=== PATIENT | male | born 1990 | race Native Hawaiian/Other Pacific Islander ===

== ENCOUNTER 2017-06-02 00:38 | Emergency (ER) | payer OTHER ==
[~2017-06-02] VITALS: Ht 175.3 cm; Wt 90.3 kg
== END 2017-06-02 01:54 | disposition home or self-care (01) ==
LOC: ED 00:38
DX: R10.13 Epigastric pain (principal); B96.81 Helicobacter pylori [H. pylori] as the cause of diseases classified elsewhere
CPT/HCPCS: 36415; 86318; 99283

== ENCOUNTER 2017-06-07 13:27 | Inpatient (IN) | payer OTHER ==
[2017-06-07] VITALS (7 sets, daily range): BP systolic 119–138; BP diastolic 78–90; TEMP 98.5–100; Ht 175.3 cm; Wt 92.2 kg
[~2017-06-07] VITALS: Ht 175.3 cm; Wt 92.2 kg
[2017-06-07 14:44] LABS: PLATELET COUNT 401 K/uL (142-355)
[2017-06-07 14:50] LABS: POTASSIUM 3.9 mmol/L (3.6-5.2); SODIUM 135 mmol/L (136-145)
[2017-06-07 15:31] LABS: PARTIAL THROMBOPLASTIN TIME 24.7 SECONDS (24.5-33.6)
[2017-06-07] MEDS ORDERED: OMEP20CA PO (18:28)
[2017-06-07] MEDS ORDERED: BIAXIN500 MG PO (18:29)
[2017-06-07] MEDS ORDERED: AMOXAPINE100 MG PO (18:29)
[2017-06-07] MEDS ORDERED: CODEINE/APAP1 TA1 PO (18:30)
[2017-06-08] VITALS: BP 125/82; TEMP 98.9
[2017-06-08 04:00] VITALS: BP 103/63; TEMP 98.5
[2017-06-08 05:48] LABS: PLATELET COUNT 376 K/uL (142-355)
[2017-06-08 05:51] LABS: POTASSIUM 3.3 mmol/L (3.6-5.2); SODIUM 133 mmol/L (136-145)
[2017-06-08 08:00] VITALS: BP 111/77; TEMP 98.7
[2017-06-08 12:00] VITALS: BP 110/68; TEMP 98.7
[2017-06-08 16:00] VITALS: BP 112/73; TEMP 99.4
[2017-06-08 20:00] VITALS: BP 114/75; TEMP 99.5
[2017-06-09] VITALS (11 sets, daily range): BP systolic 101–133; BP diastolic 65–86; TEMP 97.5–98.6
[2017-06-09 06:18] LABS: POTASSIUM 3.5 mmol/L (3.6-5.2); SODIUM 136 mmol/L (136-145)
[2017-06-09 06:53] LABS: PLATELET COUNT 374 K/uL (142-355)
[2017-06-10] VITALS: BP 119/77; TEMP 98.6
[2017-06-10 04:00] VITALS: BP 122/80; TEMP 98.9
[2017-06-10 04:50] LABS: PLATELET COUNT 441 K/uL (142-355); POTASSIUM 3.7 mmol/L (3.6-5.2); SODIUM 140 mmol/L (136-145)
[2017-06-10 08:00] VITALS: BP 120/79; TEMP 98.5
[2017-06-10 12:00] VITALS: BP 126/86; TEMP 97.7
[2017-06-10 16:00] VITALS: BP 115/73; TEMP 98.2
[2017-06-10 20:00] VITALS: BP 117/78; TEMP 98.7
[2017-06-11] VITALS: BP 116/64; TEMP 98.9
[2017-06-11 04:00] VITALS: BP 118/75; TEMP 98.9
[2017-06-11 06:58] LABS: PLATELET COUNT 438 K/uL (142-355)
[2017-06-11 07:15] LABS: POTASSIUM 3.5 mmol/L (3.6-5.2); SODIUM 133 mmol/L (136-145)
[2017-06-11 08:00] VITALS: BP 118/81; TEMP 98
[2017-06-11 12:00] VITALS: BP 136/89; BP 177/87; TEMP 97.5; TEMP 98.1
[2017-06-11 16:00] VITALS: BP 135/92; TEMP 99
[2017-06-11 20:00] VITALS: BP 124/78; TEMP 98.8
[2017-06-12] VITALS: BP 123/83; TEMP 98.1
[2017-06-12 04:00] VITALS: BP 135/94; TEMP 98.6
[2017-06-12 06:27] LABS: POTASSIUM 3.3 mmol/L (3.6-5.2); SODIUM 136 mmol/L (136-145)
[2017-06-12 06:29] LABS: PLATELET COUNT 491 K/uL (142-355)
[2017-06-12 08:00] VITALS: BP 118/79; TEMP 98.3
[2017-06-12 11:52] VITALS: BP 120/79; TEMP 98.7
[2017-06-12 15:56] VITALS: BP 127/83; TEMP 98.2
[2017-06-12 20:23] VITALS: BP 123/88; TEMP 98
[2017-06-13] VITALS: BP 113/82; TEMP 98.7
[2017-06-13 04:00] VITALS: BP 119/82; TEMP 97.8
[2017-06-13 05:53] LABS: POTASSIUM 3.5 mmol/L (3.6-5.2); SODIUM 138 mmol/L (136-145)
[2017-06-13 06:44] LABS: PLATELET COUNT 506 K/uL (142-355)
[2017-06-13 08:00] VITALS: BP 121/79; TEMP 98
== END 2017-06-13 16:25 | disposition home or self-care (01) | DRG 419 ==
LOC: ED 13:27 → MED/SURG 17:12
PROVIDERS: Emergency Medicine; Internal Medicine; Student in an Organized Health Care Education/Training Program; ADMIT Specialist
PROC: 0FT44ZZ Resection of Gallbladder, Percutaneous Endoscopic Approach (ICD-10-PCS; principal; 2017-06-07)
DX: K80.12 Calculus of gallbladder with acute and chronic cholecystitis without obstruction (principal)
CPT/HCPCS: 36415; 80053; 80307; 80329; 81000; 82150; 83690; 83735; 85027; 85610; 85730; 94760; 96365; 96366; 96367; 96372; 96374; 96375; 99283; C1729; G0479; J0132; J0330; J1100; J1170; J1644; J1885; J1956; J2001; J2175; J2250; J2405; J2550; J2704; J2710; J3010; J3490; Q9963